=== PATIENT | female | born 1995 | race Caucasian/White ===

== ENCOUNTER 2017-06-07 03:14 | Emergency (ER) | payer OTHER ==
[~2017-06-07] VITALS: Ht 162.6 cm; Wt 76.6 kg
[~2017-06-07 03:14] MED LIST: BCPILLS PO; SERT-234 PO
--- NOTE | 2017-06-07 03:22 | EMERGENCY ROOM VISIT NOTE ---
History Report prepared by Ximena: [place] Villegas Under the Supervision of: Dr. Melissa Mcnamara D.O. First contact with patient: 03:17 Stated Complaint: alcohol History of Present Illness HPI limited due to altered mental status secondary to alcohol intoxication. The patient is a 21 year old female who presents to the Emergency Room with complaints of a recent alcohol overdose. Nurse states that the patient was acting in an altered mental state when confronted by police. Nurse states that the patient was packing up her car and then attempted to drive away from police when approached. Nurse adds that patient was at a libertarian earlier in the night and drinking alcohol. Patient states she "has an alcohol problem". Pertinent medical history includes a history of anxiety. Patient adds that she has a history of 2 previous alcohol underages. She denies any health problems. Patient denies taking any current medications. She states that she lives in [place]. Source of History: patient History Limited By: AMS Review of Systems ROS limited secondary due to alcohol intoxication. Past Medical & Surgical Medical Problems: (1) Anxiety (2) Anxiety disorder (3) No chronic problems Family History No pertinent family history Social History Smoking Status: Never Smoker Alcohol Use: occasionally Marital Status: single Housing Status: lives with roommate Occupation Status: [employer] student Current/Historical Medications Scheduled Control Pills ( Control Pills), 1 TAB PO DAILY Allergies Coded Allergies: No Known Allergies (Unverified , 06/07/17) Physical Exam Vital Signs Date Time Temp Pulse Resp B/P (MAP) Pulse Ox O2 Delivery O2 Flow Rate FiO2 06/07/17 08:02 102 16 98/61 96 06/07/17 07:23 97 16 94/59 95 Room Air 06/07/17 05:53 102 20 97/49 95 Room Air 06/07/17 04:33 103 18 103/61 98 Room Air 06/07/17 03:24 36.6 128 24 147/99 98 Room Air 06/07/17 03:21 145 Physical Exam General: Crying and fairly belligerent on exam HEENT: Head - normocephalic and atraumatic Pupils are 3mm, equal, round, and reactive to light. Extraocular eye muscles are intact, and sclera are anicteric. Nose - moist nasal mucosa without discharge. Mouth - moist buccal mucosa. Oropharynx is nonerythematous and there is no tonsillar exudate or edema noted. Neck: Supple; no JVD, nuchal rigidity, cervical lymphadenopathy. Heart: Extremely tachycardic rate and rhythm. There is a normal S1 and S2 with no murmurs, clicks, or gallops appreciated. Lungs: Clear to auscultation bilaterally with no wheezes, rales, or rhonchi. Abdomen: Soft, completely nontender, nondistended, with good bowel sounds. There are no palpable pulsatile masses or hepatosplenomegaly. There is no guarding, rigidity, or rebound noted. Extremities: No evidence of cyanosis, clubbing, or edema. There are easily palpable peripheral pulses. Skin: warm and dry with good turgor and no rashes. Medical Decision & Procedures Laboratory Results 06/07/17 03:32 Test 06/07/17 03:32 Anion Gap 9.0 mmol/L (3-11) Est Creatinine Clear Calc Drug Dose 123.2 ml/min Estimated GFR () 137.4 Estimated GFR (Non- 118.6 BUN/Creatinine Ratio 16.8 (10-20) Calcium Level 8.6 mg/dl (8.5-10.1) Ethyl Alcohol mg/dL 199.0 mg/dl (0-3) Laboratory results per my review. ED Course 0320: The patient was evaluated in room B11a. A complete history and physical examination were performed. Nursing notes and previous electronic medical records were reviewed. We did confirm that this is indeed her third visit to the emergency department for alcohol intoxication. Laboratory studies were drawn as above. The patient was placed in the prone position to avoid aspiration. She was observed on the manager cardiac and pulse oximeter. 0520: The patient is sleeping and hemodynamically stable. 0707: I reassessed the patient who is resting comfortably. Her vital signs are stable. 0730: Patient is attempting to contact her mother to come pick her. I reviewed the laboratory results with the patient. I spent some time talking her about alcoholism. 0750: Upon reevaluation, patient's mother is driving from [place] to come sampler pickup the patient. Patient admits to being an alcoholic and discusses wanting to seek help. I discussed findings and results with her. She verbalized agreement of the treatment plan. She was discharged home. Medical Decision The patient is a 21 year old femal who presents to the ED with a recent overdose. Differential diagnosis includes alcohol overdose, drug intoxication, hypoglycemia, and head injury. Lab results show alcohol = 199, glucose = 113, and normal renal function. This is a 21-year-old female patient who presents to the emergency department after consuming too much alcohol. She had no obvious signs of trauma. She was somewhat belligerent upon arrival but then was able to relax and cooperative with care. She very quickly fell asleep and her vitals remained stable throughout her stay here in the emergency department. The patient did contact her mother in [place] who is coming here to pick her up. She was encouraged to avoid such excessive alcohol use in the future. Medication Reconcilliation Current Medication List: was personally reviewed by me Blood Pressure Screening Patient's blood pressure: Normal blood pressure Blood pressure disposition: Did not require urgent referral Impression Primary Impression: Alcohol overdose Scribe Attestation The scribe's documentation has been prepared under my direction and personally reviewed by me in its entirety. I confirm that the note above accurately reflects all work, treatment, procedures, and medical decision making performed by me. Departure Information Dispostion Home / Self-Care Referrals [facility] ([facility]) Forms HOME CARE DOCUMENTATION FORM, IMPORTANT VISIT INFORMATION Patient Instructions ED Overdose Alcohol, [facility]: [employer] Students and Alcohol Related Visits, [facility] Additional Instructions Avoid such excessive alcohol use in the future Rest. sridevi a bland diet and plenty of clear liquids Use tylenol for headaches Problem Qualifiers Primary Impression: Alcohol overdose Encounter type: initial encounter Injury intent: accidental or unintentional Qualified Codes: T51.91XA - Toxic effect of unspecified alcohol , accidental (unintentional), initial encounter
[2017-06-07 03:24] VITALS: TEMP 36.6; Ht 162.6 cm; Wt 76.6 kg
[2017-06-07 04:10] LABS: CALCIUM 8.6 mg/dl (8.5-10.1); CREATININE 0.73 mg/dl (0.60-1.20); POTASSIUM 3.4 mmol/L (3.5-5.1)
[2017-06-07 08:02] VITALS: BP 98/61; PULSE 102; O2SAT 96
== END 2017-06-07 08:03 | disposition home or self-care (01) ==
LOC: EDBD 03:14 → C.EDB 03:16
DX: T51.0X1A Toxic effect of ethanol, accidental (unintentional), initial encounter (principal); Z79.3 Long term (current) use of hormonal contraceptives